=== PATIENT | male | born 1995 | race Caucasian/White ===

== ENCOUNTER 2018-06-23 12:13 | Emergency (ER) | payer OTHER ==
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
[2018-06-23 16:31] VITALS: BP 137/91
== END 2018-06-23 16:29 | disposition home or self-care (01) ==
LOC: ED 12:13
DX: S43.102A Unspecified dislocation of left acromioclavicular joint, initial encounter (principal); S80.212A Abrasion, left knee, initial encounter; W19.XXXA Unspecified fall, initial encounter; Y93.89 Activity, other specified; Y92.039 Unspecified place in apartment as the place of occurrence of the external cause; Z72.0 Tobacco use
CPT/HCPCS: 99282